=== PATIENT | male | born 1970 | race American Indian/Alaskan Native ===

== ENCOUNTER 2021-02-25 00:30 | Emergency (ER) | payer SELFPAY ==
[2021-02-25 03:20] VITALS: BP 161/84
--- NOTE | 2021-02-25 03:39 | XRay Report ---
CHEST 1 VIEW 02/25/2021 3:26 AM INDICATION / CLINICAL INFORMATION: sob, cough. COMPARISON: None available. FINDINGS: SUPPORT DEVICES: None. HEART / MEDIASTINUM: No significant abnormality. LUNGS / PLEURA: No significant pulmonary or pleural abnormality. No pneumothorax. ADDITIONAL FINDINGS: No significant additional findings. IMPRESSION: No acute abnormality. Signer Name: Moncoh Lares MD Signed: 02/25/2021 3:35 AM Workstation Name: [id number]
== END 2021-02-25 11:40 | disposition left against medical advice (07) ==
LOC: ED 00:30
DX: R06.02 Shortness of breath (principal); Z53.21 Procedure and treatment not carried out due to patient leaving prior to being seen by health care provider
CPT/HCPCS: 71045

== ENCOUNTER 2021-02-27 22:23 | Emergency (ER) | payer SELFPAY ==
--- NOTE | 2021-02-28 00:58 | Event Note ---
ED Screening Note Date of service: 02/28/21 Time: 00:57 ED Screening Note: 51-year-old male patient presents to the emergency department with complaints of cough and shortness of breath for 4 days. No known sick contacts. No current steroid or antibiotic use. No recent travel. Patient did not receive his COVID-19 vaccination series. Patient has not been tested for COVID-19. He has taken multiple wbhk-ber-fceqsly cough/cold remedies with limited relief. Tachycardic in triage. SpO2 at rest 99%. Dropped to 91% with ambulating short distance. General: Awake, appropriately interactive, no acute distress. Neck: Supple. Full range of motion intact. Cardiovascular: Tachycardic. Normal peripheral perfusion. Pulmonary: Conversational dyspnea. Diffuse inspiratory and expiratory wheezing. Coarse rhonchi throughout. Skin: No apparent rashes or lesions. Neurological: No facial asymmetry. Speech is clear. Follows commands. Patient is alert and oriented. Musculoskeletal: Moves all four extremities spontaneously with normal range of motion. Psych: Cooperative. Appropriate mood and affect. Labs, imaging, COVID-19 panel ordered. Attending emergency physician aware. I have greeted and performed a focused rapid initial assessment of this patient. A comprehensive ED assessment and evaluation of the patient, analysis of all test results, and completion of the medical decision-making process will be conducted by additional ED providers. This initial assessment/diagnostic ord ers/clinical plan/treatment(s) is/are subject to change based on patients health status, clinical progression and re-assessment. Further treatment and workup at subsequent clinical provider's discretion. Patient/guardian urged not to elope from the ED as their condition may be serious if not clinically assessed and managed.
[2021-02-28] MEDS ORDERED: AZITHROMYCIN/NS 500 MG/250 ML 500 MG/250 ML BAG IV ONE (01:06)
[2021-02-28] MEDS ORDERED: cefTRIAXone/NS 2 GM/100 ML 2 GM/100 ML BAG IV ONE (01:06)
[2021-02-28] MEDS ORDERED: dexAMETHasone 4 MG/ML VIAL IV ONE (01:06)
[2021-02-28] MEDS ORDERED: IPRATROPIUM/ALBUTEROL SULFATE 3 ML AMPUL.NEB IH ONE (01:07)
--- NOTE | 2021-02-28 01:09 | Emergency Department Report ---
ED Shortness of Breath HPI - General Chief Complaint: Dyspnea/Respdistress Stated Complaint: SOB Time Seen by Provider: 02/28/21 00:40 Source: patient Mode of arrival: Ambulatory Limitations: No Limitations - History of Present Illness Initial Comments: Patient is a 51-year-old male who presents emergency room with complaints of shortness of breath, cough, fever. Patient states his fever started 4 days ago and it lasted for 1 day. Patient states his fever has resolved. Patient states that shortness of breath and cough are worsening. Patient states he was tested 8 days ago for COVID-19 and it was negative. Patient denies chest pain. Patient states his shortness of breath and cough are better with rest and worse with exertion. Patient states having difficulty taking deep breaths. Patient denies nausea vomiting. Patient states he is not vaccinated for COVID-19. Patient denies recent travel. Patient denies recent international travel. Patient denies exposure to the novel coronavirus. Patient denies sick contacts. Patient denies loss of smell. Patient denies diarrhea. Patient denies coming in contact with anybody with symptoms of the novel coronavirus. Complaint: shortness of breath, cough -: Sudden, days(s) Severity: severe Improves With: rest Worsens With: exertion Context: recent URI Associated Symptoms: fever, cough Treatments Prior to Arrival: none - Related Data Home Oxygen Therapy: No Allergies Allergy/AdvReac Type Severity Reaction Status Date / Time No Known Allergies Allergy Verified 02/25/21 03:18 ED Review of Systems ROS: Stated complaint: SOB Other details as noted in HPI Constitutional: see HPI, fever Eyes: denies: eye pain, eye discharge, vision change ENT: denies: ear pain, throat pain Respiratory: see HPI, cough, shortness of breath, SOB with exertion, SOB at rest. denies: wheezing Cardiovascular: denies: chest pain, palpitations Endocrine: no symptoms reported Gastrointestinal: denies: abdominal pain, nausea, diarrhea Genitourinary: denies: urgency, dysuria Musculoskeletal: denies: back pain, joint swelling, arthralgia Skin: denies: rash, lesions Neurological: denies: headache, weakness, paresthesias Psychiatric: denies: anxiety, depression Hematological/Lymphatic: denies: easy bleeding, easy bruising ED Past Medical Hx - Past Medical History Previous Medical History?: Yes Hx Asthma: No Additional medical history: bronchitis - Surgical History Past Surgical History?: Yes Additional Surgical History: hernia repair - Family History Family history: no significant - Social History Smoking Status: Never Smoker Substance Use Type: None ED Physical Exam - General Limitations: No Limitations General appearance: alert, in distress - Head Head exam: Present: atraumatic, normocephalic - Eye Eye exam: Present: normal appearance - ENT ENT exam: Present: mucous membranes moist - Neck Neck exam: Present: normal inspection - Respiratory Respiratory exam: Present: respiratory distress, wheezes, decreased breath sounds - Cardiovascular Cardiovascular Exam: Present: regular rate, normal rhythm, normal heart sounds. Absent: systolic murmur, diastolic murmur, rubs, gallop - GI/Abdominal GI/Abdominal exam: Present: soft, normal bowel sounds - Rectal Rectal exam: Present: deferred - Extremities Exam Extremities exam: Present: normal inspection - Back Exam Back exam: Present: normal inspection - Neurological Exam Neurological exam: Present: alert, oriented X3, normal gait - Psychiatric Psychiatric exam: Present: normal affect, normal mood - Skin Skin exam: Present: warm, dry, intact, normal color. Absent: rash ED Course Vital Signs 02/27/21 22:54 Temperature 98.2 F Pulse Rate 109 H Respiratory 20 Rate Blood Pressure 131/79 [Right] O2 Sat by Pulse 96 Oximetry - Reevaluation(s) Reevaluation #1: Patient ambulated and the patient became hypoxic. Patient dropped to 90% with minimal steps. Patient will be placed on oxygen. 02/28/21 00:50 Reevaluation #2: Patient is lungs have improved. 02/28/21 02:35 Reevaluation #3: I discussed all results with patient. I discussed plan of care with patient. Patient agrees with plan of care and admission. Patient to be admitted to the hospitalist service. Patient's lungs have improved. 02/28/21 03:36 - Consultations Consultation #1: Hospitalist consulted for admission. Hospitalist to admit patient. 02/28/21 03:36 ED Medical Decision Making - Lab Data Result diagrams: 02/28/21 01:28 02/28/21 01:28 - Radiology Data Radiology results: report reviewed, image reviewed interpreted by me: Chest x-ray: No pneumonia, no pneumothorax, no foreign body, no osseous fin dings, no acute findings CHEST PA AND LATERAL VIEWS INDICATION: cough/SOB - PUI. COMPARISON: 02/25/2021 FINDINGS: Support devices: None. Heart: Within normal limits. Lungs/Pleura: No acute pulmonary or pleural findings. IMPRESSION: 1. No acute findings. - Medical Decision Making Patient is a 51-year-old male who presents emergency room with complaints of shortness of breath and cough. Patient had a negative Covid on 02/20/2021. Patient symptoms started 4 days ago. Patient symptoms are worsening. Patient initially had fever but that has resolved. Patient had labs done - Differential Diagnosis Shortness of breath, cough, PUI, pneumonia, respiratory failure Critical Care Time: Yes Critical care time in (mins) excluding proc time.: 35 Critical care attestation.: If time is entered above; I have spent that time in minutes in the direct care of this critically ill patient, excluding procedure time. Critical Care Time: 35 minutes ED Disposition Clinical Impression: Person under investigation for COVID-19, Acute respiratory failure with hypoxia, Shortness of breath, Cough Disposition: ADMITTED INPATIENT Is pt being admited?: Yes Does the pt Need Aspirin: No Condition: Critical Time of Disposition: 03:13
--- NOTE | 2021-02-28 01:30 | XRay Report ---
CHEST PA AND LATERAL VIEWS INDICATION: cough/SOB - PUI. COMPARISON: 02/25/2021 FINDINGS: Support devices: None. Heart: Within normal limits. Lungs/Pleura: No acute pulmonary or pleural findings. IMPRESSION: 1. No acute findings. Signer Name: Efren Burks MD Signed: 02/28/2021 1:25 AM Workstation Name: [id number]
--- NOTE | 2021-02-28 01:52 | History and Physical Report ---
History of Present Illness Date of examination: 02/28/21 Date of admission: 02/28/21 Chief complaint: Shortness of breath Cough History of present illness: This is a 51-year-old male seen in the ED at bedside. He presents who to emergency room with complaints of shortness of breath, cough, and fever. Patient states his fever started 4 days ago and it lasted for 1 day. Patient states his fever has resolved. Patient states that shortness of breath and cough are worsening. Patient states he was tested 8 days ago for COVID-19 and it was negative. Patient denies chest pain, nausea and vomiting, abdominal pain and fever. Patient denies tobacco use, alcohol use, and illicit drug use. Patient states that he did not get Covid vaccination yet. Chest x-ray has been done and is negative for acute findings. Past History Past Medical History: other (right femoral hernia and history of bronchitis) Past Surgical History: hernia repair Social history: full code. denies: smoking, alcohol abuse, IV drug use Family history: no significant family history Medications and Allergies Allergies Allergy/AdvReac Type Severity Reaction Status Date / Time No Known Allergies Allergy Verified 02/25/21 03:18 Active Meds: Active Medications Azithromycin (Zithromax/Ns) 500 mg in 250 mls @ 250 mls/hr IV ONCE ONE; Protocol Stop: 02/28/21 02:05 Review of Systems Constitutional: fatigue Ears, nose, mouth and throat: no epistaxis, no bleeding gums Cardiovascular: shortness of breath Respiratory: cough, shortness of breath, dyspnea on exertion Gastrointestinal: no melena Rectal: no hemorrhoids Musculoskeletal: muscle weakness Endocrine: no palpatations, no high blood sugars Hematologic/Lymphatic: no easy bruising, no easy bleeding Allergic/Immunologic: no urticaria Exam - Constitutional Vitals: Temp Pulse Resp BP Pulse Ox 98.2 F 109 H 20 131/79 96 02/27/21 22:54 02/27/21 22:54 02/27/21 22:54 02/27/21 22:54 02/27/21 22:54 General appearance: Present: mild distress, well-nourished - EENT Eyes: Present: PERRL ENT: hearing intact, clear oral mucosa - Neck Neck: Present: supple, normal ROM - Respiratory Respiratory effort: other (Shortness of breath) Respiratory: bilateral: CTA, wheezing (Bilateral wheezing) - Cardiovascular Heart Sounds: Present: S1 & S2. Absent: rub, click - Extremities Extremities: pulses symmetrical, No edema Peripheral Pulses: within normal limits - Abdominal General gastrointestinal: Present: soft, non-tender, non-distended, normal bowel sounds Male genitourinary: Present: normal - Integumentary Integumentary: Present: clear, warm, dry - Musculoskeletal Musculoskeletal: gait normal, strength equal bilaterally - Psychiatric Psychiatric: appropriate mood/affect, intact judgment & insight, cooperative - Neurologic Neurologic: CNII-XII intact, moves all extremities - Allied Health Allied health notes reviewed: nursing Results - Labs CBC & Chem 7: 02/28/21 01:28 Assessment and Plan - Patient Problems (1) Acute respiratory failure with hypoxia Status: Acute Plan to address problem: Continue oxygen supplement As needed bronchodilator 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 Checks x-ray showed no acute findings Patient reported history of bronchitis (4) DVT prophylaxis Status: Acute Plan to address problem: Subcutaneous Lovenox
[2021-02-28] MEDS ORDERED: MAGNESIUM HYDROXIDE (MOM) ORAL LIQD UDC PO PRN (01:55)
[2021-02-28] MEDS ORDERED: ALUM-MAG HYDROXIDE-SIMETHICONE 200-200-20MG/5ML ORAL LIQD 30 ML PO PRN (01:55)
[2021-02-28] MEDS ORDERED: oxyCODONE /ACETAMINOPHEN 5-325MG TAB PO PRN (01:55)
[2021-02-28] MEDS ORDERED: MORPHINE 2 MG/1 ML INJ IV PRN (01:55)
[2021-02-28] MEDS ORDERED: ONDANSETRON 4 MG/2 ML INJ IV PRN (01:55)
[2021-02-28] MEDS ORDERED: METOCLOPRAMIDE 10 MG/2 ML INJ IV PRN (01:55)
[2021-02-28] MEDS ORDERED: ACETAMINOPHEN 325 MG TAB PO PRN (01:55)
[2021-02-28] MEDS ORDERED: NALOXONE 0.4 MG/1 ML INJ IV PRN (01:55)
[2021-02-28] MEDS ORDERED: SENNOSIDES 8.6 MG TAB PO PRN (01:55)
[2021-02-28 01:58] LABS: Hematocrit 41.4 % (35.5-45.6); Hemoglobin 13.9 gm/dl (11.8-15.2); Mean Corpuscular HGB Conc 34 % (32-34); Mean Corpuscular Volume 94 fl (84-94); Platelet Count 317 K/mm3 (140-440); Red Blood Count 4.41 M/mm3 (3.65-5.03); Red Cell Distribution Width 14.1 % (13.2-15.2)
[2021-02-28 02:14] LABS: Alanine Aminotransferase 23 units/L (7-56); Albumin 4.3 g/dL (3.9-5); BUN/Creatinine Ratio 22; Blood Urea Nitrogen 26 mg/dL (9-20); Calcium 8.8 mg/dL (8.4-10.2); Hemolysis Index 2
[2021-02-28 02:37] LABS: Total Cells Counted 100
[2021-02-28 02:38] LABS: Large Platelets Few; Platelet Estimate Consistent w Auto; RBC Morphology Normal
[2021-02-28] MEDS ORDERED: ALBUTEROL 8.5 GM MDI INHALATION IH PRN (06:14)
--- NOTE | 2021-02-28 14:04 | Consultation ---
History of Present Illness Consult date: 02/28/21 Reason for consult: dyspnea, cough History of present illness: This is a 51-year-old male seen in the ED at bedside. He presents who to emergency room with complaints of shortness of breath, cough, and fever. Patient states his fever started 4 days ago and it lasted for 1 day. Patient states his fever has resolved. Patient states that shortness of breath and cough are worsening. Patient states he was tested 8 days ago for COVID-19 and it was negative. Patient denies chest pain, nausea and vomiting, abdominal pain and fever. Patient denies tobacco use, alcohol use, and illicit drug use. Patient states that he did not get Covid vaccination yet. Chest x-ray has been done and is negative for acute findings. COVID-19 test is pending Past History Past Medical History: other (right femoral hernia and history of bronchitis) Past Surgical History: hernia repair Social history: full code. denies: smoking, alcohol abuse, IV drug use Family history: no significant family history Past History Past Medical History: other (right femoral hernia and history of bronchitis) Past Surgical History: hernia repair Social history: full code. denies: smoking, alcohol abuse, IV drug use Family history: no significant family history Medications and Allergies Allergies Allergy/AdvReac Type Severity Reaction Status Date / Time No Known Allergies Allergy Verified 02/25/21 03:18 Active Meds: Active Medications Acetaminophen (Acetaminophen 325 Mg Tab) 650 mg PO Q4H PRN PRN Reason: Pain MILD(1-3)/Fever >100.5/AGUILAR Al Hydrox/Mg Hydrox/Simethicone (Alum-Mag Hydroxide-Simethicone [id number]/5ml Oral Liqd 30 Ml) 30 ml PO Q4H PRN PRN Reason: Indigestion Albuterol (Albuterol 8.5 Gm Mdi Inhalation) 2 puff IH Q4HRT PRN PRN Reason: Shortness Of Breath Magnesium Hydroxide (Magnesium Hydroxide (Mom) Oral Liqd Udc) 30 ml PO Q4H PRN PRN Reason: Constipation Metoclopramide HCl (Metoclopramide 10 Mg/2 Ml Inj) 10 mg IV Q6H PRN PRN Reason: Nausea And Vomiting Morphine Sulfate (Morphine 2 Mg/1 Ml Inj) 2 mg IV Q4H PRN PRN Reason: Pain, Moderate (4-6) Naloxone HCl (Naloxone 0.4 Mg/1 Ml Inj) 0.1 mg IV Q2MIN PRN PRN Reason: Res Rate </= 8 or 02 SAT < 92% Ondansetron HCl (Ondansetron 4 Mg/2 Ml Inj) 4 mg IV Q8H PRN PRN Reason: Nausea And Vomiting Oxycodone/Acetaminophen (Oxycodone /Acetaminophen 5-325mg Tab) 1 tab PO Q6H PRN PRN Reason: Pain, Moderate (4-6) Senna (Sennosides 8.6 Mg Tab) 8.6 mg PO Q12HR PRN PRN Reason: Constipation Sodium Chloride (Sodium Chloride 0.9% 10 Ml Flush Syringe) 10 ml IV BID [place] Last Admin: 02/28/21 10:00 Dose: 10 ml Documented by: Sodium Chloride (Sodium Chloride 0.9% 10 Ml Flush Syringe) 10 ml IV PRN PRN PRN Reason: LINE FLUSH Review of Systems All systems: negative Respiratory: cough with sputum, shortness of breath Physical Examination Vital signs: Vital Signs Temp Pulse Resp BP Pulse Ox 98.2 F 107 H 20 131/79 96 02/27/21 22:53 02/27/21 22:53 02/27/21 22:53 02/27/21 22:53 02/27/21 22:53 General appearance: no acute distress, alert ENT: oropharynx moist Neck: supple, no JVD Effort: normal Ascultation: Bilateral: clear Cardiovascular: regular rate and rhythm Gastrointestinal: normoactive bowel sounds, soft, non-tender Integumentary: normal Extremities: no cyanosis, no edema, pink and warm Musculoskeletal: no deformities Gait: other (Not examined) normal mental status mood appropriate Results - Laboratory Findings CBC and BMP: 02/28/21 01:28 02/28/21 01:28 PT/INR, D-dimer D-Dimer 480.46 ng/mlDDU (0-234) H 02/28/21 01:28 Abnormal lab findings: Abnormal Labs 02/28/21 02/28/21 02/28/21 01:28 01:28 01:28 Monocytes % (Manual) 10.0 H Eosinophils % (Manual) 18.0 H Eosinophils # (Manual) 1.5 H D-Dimer 480.46 H BUN 26 H Lactate Dehydrogenase 261 H - Diagnostic Findings Chest x-ray: image reviewed (Unremarkable, no acute findings) Assessment and Plan Impression: Cough and shortness of breath etiology undetermined at this time possible acute bronchitis Rule out COVID-19 infection (pending results of the test close) Recommendations: Continue with the supportive measures at this time while awaiting COVID-19 test results. Continue with supplemental oxygen. Consider steroids if patient positive for COVID-19 infection.
--- NOTE | 2021-02-28 16:31 | Discharge Summary ---
Providers - Providers Date of Admission: 02/28/21 01:55 Date of discharge: 02/28/21 Attending physician: MARTHA MONTANEZ 02/28/21 01:55 Consult to Physician [CONS] Routine Comment: Consulting Provider: AMPARO AUSTIN Physician Instructions: Reason For Exam: Acute respiratory failure/PUI 02/28/21 02:14 Consult to Physician [CONS] Routine Comment: Consulting Provider: NILSA PEARSON Physician Instructions: Reason For Exam: Acute respiratory failure with hypoxia Primary care physician: STREET [employer]CHANIC Hospitalization Condition: Critical Hospital course: This is a 51-year-old -Luxembourger male who presented to emergency room with complaints of shortness of breath, cough, and fever. Patient states that shortness of breath and cough are worsening. Patient states he was tested 8 days ago for COVID-19 and it was negative. Patient states that he did not get Covid vaccination yet. Chest x-ray has been done and is negative for acute findings. Patient oxygen saturation was normal in room air. Patient was retested for COVID-19 in the hospital and that came negative. Patient was then placed on Z-Matty, albuterol inhaler as needed and was discharged home in stable condition with outpatient follow-up. Final Discharge Diagnosis (Prints w/discharge instructions): Acute bronchitis Time spent for discharge: 34 minutes Core Measure Documentation - Palliative Care Palliative Care/ Comfort Measures: Not Applicable - Core Measures Any of the following diagnoses?: none Exam - Physical Exam Narrative exam: GENERAL: well-developed and well-nourished -Luxembourger male lying on bed appeared to be in no discomfort. HEENT: Normocephalic. Atraumatic. No conjunctival congestion or icterus. Patient has moist mucous membranes. NECK: Supple. Trachea midline. CHEST/LUNGS: breathing nonlabored. Resting on room air HEART/CARDIOVASCULAR: Regular in rate and rhythm. S1 and S2 positive. ABDOMEN: Abdomen is soft, nontender. Patient has normal bowel sounds. SKIN: There is no rash. Warm and dry. NEURO: No focal motor deficit. Follows command. MUSCULOSKELETAL: No joint effusion or tenderness. EXTRIMITY: No edema, no cyanosis or clubbing. PSYCH: Cooperative. - Constitutional Vitals: Temp Pulse Resp BP Pulse Ox 98.2 F 56 L 14 133/85 97 02/27/21 22:54 02/28/21 16:01 02/28/21 15:01 02/28/21 16:01 02/28/21 16:09 Plan Activity: advance as tolerated Weight Bearing Status: Weight Bear as Tolerated Diet: low fat, low salt Follow up with: PRIMARY MD ANTON [Primary Care Provider] - 7 Days BAM VILLALBA MD [Staff Physician] - 7 Days Prescriptions: Albuterol Mdi (or & Nicu Only) [ProAir HFA Inhaler] 2 puff IH Q4HRT PRN #1 inha PRN Reason: Shortness Of Breath Azithromycin [Zithromax] 250 mg PO DAILY #6 tablet
[2021-03-01 00:39] VITALS: BP 134/88
== END 2021-02-28 23:00 | disposition admitted as inpatient to this hospital (09) ==
LOC: ED 22:23 → 3A 02-28 01:55 → INTOOBSV 02-28 01:55 → UNDOADMOB 02-28 01:55 → ED 02-28 23:00
DX: J96.01 Acute respiratory failure with hypoxia (principal); R05 Cough; Z20.822 Contact with and (suspected) exposure to COVID-19
CPT/HCPCS: 36415; 71046; 80053; 82140; 82728; 83036; 83520; 83615; 83735; 84145; 85007; 85025; 85379; 86140; 99291; U0003